=== PATIENT | female | born 1970 ===

== ENCOUNTER 2017-05-29 12:19 | Emergency (ER) | payer BC ==
[2017-05-29 13:22] VITALS: BP 121/84
--- NOTE | 2017-05-29 14:01 | UC ---
Hip/Pelvis Pain - HPI Summary HPI Summary: right pelvis(illiac ) pain began few days ago no known injury, hurts to WB and ly flat - History Of Current Complaint Chief Complaint: UCLowerExtremity Stated Complaint: RT HIP PAIN Time Seen by Provider: 05/29/17 13:54 Hx Obtained From: Patient Hx Last Menstrual Period: ~05/03/17 ?: No Mechanism Of Injury: n/a Onset/Duration: Sudden Onset, Lasting Weeks - 2 Timing: Constant Severity Initially: Moderate Severity Currently: Moderate Location: Discrete At: - right illiac Character Of Pain: Aching Aggravating Factor(s): Movement, Weight Bearing Alleviating Factor(s): Nothing Associated Signs And Symptoms: Positive: Negative - Allergies/Home Medications Allergies/Adverse Reactions: Allergies Allergy/AdvReac Type Severity Reaction Status Date / Time No Known Allergies Allergy Verified 05/29/17 13:18 Home Medications: Home Medications Ibuprofen TAB* [Advil TAB*] 400 - 600 mg PO Q6H PRN 05/29/17 [History Confirmed 05/29/17] PMH/Surg Hx/FS Hx/Imm Hx Previously Healthy: Yes - Surgical History Surgical History: Yes Surgery Procedure, Year, and Place: Appendectomy, 1986; Right Knee Reconstruction, 1995; C-Sections, 2005 2007 - Family History Known Family History: Positive: None - Social History Occupation: Works From/At Home Lives: With Family Alcohol Use: Occasionally Substance Use Type: None Smoking Status (MU): Former Smoker Length of Time of Smoking/Using Tobacco: 1 PPD On and Off for 10 Years When Did the Patient Quit Smoking/Using Tobacco: 2005 - Immunization History Most Recent Influenza Vaccination: Not the Season Review of Systems Constitutional: Negative Skin: Negative Eyes: Negative ENT: Negative Respiratory: Negative Cardiovascular: Negative Gastrointestinal: Negative Genitourinary: Negative Motor: Negative Neurovascular: Negative Musculoskeletal: Arthralgia - right illiaca crest Neurological: Negative Psychological: Negative Is Patient Immunocompromised?: No All Other Systems Reviewed And Are Negative: Yes Physical Exam Triage Information Reviewed: Yes Appearance: Well-Appearing, No Pain Distress, Well-Nourished Vital Signs: Initial Vital Signs Temp 98.5 F 05/29/17 13:16 Pulse 88 05/29/17 13:16 Resp 16 05/29/17 13:16 BP 121/84 05/29/17 13:16 Pulse Ox 100 12/18/17 13:16 Vital Signs Reviewed: Yes Eye Exam: Normal Eyes: Positive: Conjunctiva Clear ENT Exam: Normal ENT: Positive: Normal ENT inspection, Hearing grossly normal, Pharynx normal. Negative: Trismus, Muffled voice, Hoarse voice, Dental tenderness Dental Exam: Normal Neck exam: Normal Neck: Positive: Supple, Nontender Respiratory Exam: Normal Respiratory: Positive: Chest non-tender, No respiratory distress, No accessory muscle use Cardiovascular Exam: Normal Cardiovascular: Positive: RRR, Pulses Normal, Brisk Capillary Refill Abdominal Exam: Normal Abdomen Description: Positive: Nontender, No Organomegaly, Soft. Negative: CVA Tenderness (R), CVA Tenderness (L) Bowel Sounds: Positive: Present Musculoskeletal Exam: Normal Musculoskeletal: Positive: Strength Intact, ROM Intact, No Edema Neurological Exam: Normal Neurological: Positive: Alert, Muscle Tone Normal Psychological Exam: Normal Skin Exam: Normal Diagnostics - Radiology No standard instances Xray Interpretation: No Acute Changes Radiology Interpretation Completed By: ED Physician, Radiologist Hip Injury Course/Dx - Course Course Of Treatment: ibuprofen, muscle relaxer, physical therapy follow with pcp - Differential Dx/Diagnosis Provider Diagnoses: muscle strain Discharge - Discharge Plan Condition: Stable Disposition: HOME Prescriptions: Cyclobenzaprine TAB* [Flexeril 10 MG TAB*] 10 mg PO TID PRN #15 tab PRN Reason: muscle pain Patient Education Materials: Muscle Strain (ED) Referrals: [facility] [place] PHYSICIAN REFERRAL [Outside] - 4 Days
--- NOTE | 2017-05-29 15:08 | RAD ---
HISTORY: Right iliac pain COMPARISONS: None VIEWS: 1, Single frontal view of the pelvis FINDINGS: BONE DENSITY: Normal. BONES: There is no displaced fracture. JOINTS: There is no arthropathy. ALIGNMENT: There is no dislocation. SOFT TISSUES: Unremarkable. OTHER FINDINGS: None. IMPRESSION: NO ACUTE OSSEOUS INJURY. IF SYMPTOMS PERSIST, RECOMMEND REPEAT IMAGING.
== END 2017-05-29 15:22 | disposition home or self-care (01) ==
LOC: UCCORT 12:19
DX: S76.011A Strain of muscle, fascia and tendon of right hip, initial encounter (principal); X58.XXXA Exposure to other specified factors, initial encounter; Y92.9 Unspecified place or not applicable; Z87.891 Personal history of nicotine dependence
CPT/HCPCS: 72170; 99212; G0463